=== PATIENT | female | born 1970 | race Caucasian/White ===

== ENCOUNTER 2018-05-08 20:09 | Emergency (ER) | payer OTHER, SELFPAY ==
[2018-05-08 20:10] VITALS: BP 129/78; PULSE 84; RESP 16; TEMP 36.4; O2SAT 99; BMI 21.9
--- NOTE | 2018-05-08 20:26 | RAD_ITS ---
STUDY: X-RAY CHEST REASON FOR EXAM: Female, 47 years old. Chest pain TECHNIQUE: Frontal and lateral views of the chest COMPARISON: None. FINDINGS: There is a calcified granuloma in the right lower lobe. The lungs are otherwise clear. There are no pleural effusions. There is no pneumothorax. The heart is normal in size. The visualized osseous structures are within normal limits. RAD/Chest PA and Lateral IMPRESSION: No acute thoracic pathology. Electronically Signed: Raimundo Coughlin, at 21:07 EST Tel , Service support ,
[2018-05-08] MEDS: Mag Hydrox/Al Hydrox/Simeth 30 ML UDC PO (20:53)
--- NOTE | 2018-05-08 21:32 | ED.DCSUM_ITS ---
- ER Visit Summary Date of Service: 05/08/18 Chief Complaint: [Chest pain] History of Present Illness: The patient is a 47 F [ presents to the emergency department complaint of chest discomfort after eating a salad. Patient states that she believes that she may have swallowed a large piece of cucumber that felt like it may have gotten stuck. Patient not having intermittent spasms and pain in the center of her chest. Patient does not feel short of breath. Patient is not had this happen before. She denies recent illness. She has no medical history. Patient states she is able to swallow water. Patient has not vomited.] Physical Examination: [HEENT-PERRLA, EOMI. Cranial nerves II through XII grossly intact. TMs clear. Mucous membranes moist. No adenopathy. Cardiovascular-regular rate and rhythm without murmur or ectopy Lungs-clear to auscultation, chest wall stable without crepitus or subcu emphysema Abdomen-normoactive bowel sounds, soft, nontender, no rebound or rigidity, no peritoneal signs. Extremities-intact ?4, normal range of motion, normal pulses, atraumatic] Test Results: [Chest x-ray obtained was normal without any evidence of Borhave's syndrome.] Emergency Department Course and Treatment: [Patient received carbonated soft drink and subsequently a GI cocktail. Patient states that after the soft drink her spasms ceased and symptoms have completely resolved.] Treatment Plan: [Discharged home in stable condition. Patient advised to return if worsening pain, increasing shortness of breath, fever, metaphysis, or condition should worsen anyway.] Disposition: [Discharged home in stable condition] Impression: [Esophageal food impaction-resolved] This note was generated with [employer] dictation software. It may contain incorrect words, spelling, and punctuation that were not noted in review of the chart prior to signing ED Disposition - Plan for ED Patient: Chief Complaint: Chest Other Referrals: Leonel Guadarrama MD [Primary Care Provider] -
--- NOTE | 2018-05-08 21:32 | ED.DEP ---
ED Disposition - Plan for ED Patient: Chief Complaint: Chest Other Instructions: ED Foreign Body Esophageal Rslv Referrals: Leonel Guadarrama MD [Primary Care Provider] - 3-5 Days
[2018-05-08 21:37] VITALS: RESP 16
--- NOTE | 2018-05-08 21:38 | ED.RN ---
PT DENIES ANY PAIN AT THIS TIME. REVIEWED D/C INSTRUCTIONS, FOLLOW UP CARE, AND S/S THAT WOULD WARRANT A RETURN TO THE ED WITH PT. PT VERBALIZED AN UNDERSTANDING AND DENIES FURTHER QUESTIONS FOR THIS RN. PT SKIN WARM/DRY, RESP EVEN AND UNLABORED, PT A&O X 3, NO DISTRESS NOTED. PT AMBULATED OUT OF ED, GAIT STEADY.
== END 2018-05-08 21:39 | disposition home or self-care (01) ==
LOC: ED 20:56
PROVIDERS: Emergency Provider Emergency Medicine; Family Provider Family Medicine; PCP Family Medicine
DX: T18.128A Food in esophagus causing other injury, initial encounter (principal); X58.XXXA Exposure to other specified factors, initial encounter; Y93.9 Activity, unspecified; Y92.9 Unspecified place or not applicable
CPT/HCPCS: 71046; 99283